=== PATIENT | male | born 1970 | race African-American/Black ===

== ENCOUNTER 2020-09-16 10:25 | Inpatient (IN) | payer MEDICAID, OTHER ==
[~2020-09-16] VITALS: Ht 185.4 cm; Wt 69.9 kg
[2020-09-16] MEDS ORDERED: ACETAMINOPHEN 325MG TABLET PO STA (10:39)
[2020-09-16] MEDS ORDERED: SODIUM CHLORIDE 0.9% 1,000 ML IV ONE (10:45)
[2020-09-16 11:01] LABS: HEMATOCRIT. 39.8 % (42.0-52.0); HEMOGLOBIN. 13.3 g/dL (14.0-18.0); MEAN CORPUSCULAR HEMOGLOBIN 29.3 pg (28.0-32.0); MEAN CORPUSCULAR VOLUME 87.4 fL (80.0-94.0); MEAN PLATELET VOLUME 10.5 fl (7.4-10.4); PLATELET 224 x1000/uL (130-400); RED BLOOD CELL COUNT 4.55 mill/uL (4.7-6.1); RED CELL DISTRIBUTION WIDTH 12.5 % (11.6-14.6)
[2020-09-16 11:07] LABS: CHLORIDE 100 mEq/L (98-107)
[2020-09-16 11:08] LABS: BG BASE EXCESS 4.1 mmol/L (-2.0-2.0); BG CARBOXYHEMOGLOBIN 0.3 % (0.5-1.5); BG DEOXYHEMOGLOBIN 4.9 % (0.0-5.0); BG METHEMOGLOBIN 0.4 % (0.0-1.5); BG OXYGEN SATURATION 95.1 % (92.0-98.5); BG OXYHEMOGLOBIN 94.4 % (94.0-97.0); BG PCO2 34.9 mmHg (35.0-45.0); BG PH 7.506 (7.350-7.450); BG PO2 72.2 mmHg (75.0-100.0); BG SAMPLE SITE RIGHT RADIAL; BG VENT MODE NASAL CANNULA
[2020-09-16 11:26] LABS: PLATELET ESTIMATE NORMAL
[2020-09-16] MEDS ORDERED: DEXAMETHASONE 4MG/ML 1ML VIAL IV ONE (11:45)
[2020-09-16] MEDS ORDERED: LIDOCAINE HCL/PF 1% 2ML VIAL ONE (12:00)
[2020-09-16] MEDS ORDERED: BENZONATATE 100MG CAPSULE PO PRN (14:15)
[2020-09-16] MEDS ORDERED: AZITHROMYCIN 500 MG TABLET PO NR (15:30)
[2020-09-16] MEDS: CEFTRIAXONE 1,000 MG in DEXTROSE 5% WATER 50 ML IV SCH (15:37)
[2020-09-16] MEDS ORDERED: ACETAMINOPHEN 325MG TABLET PO PRN ×2 (15:45)
[2020-09-16] MEDS ORDERED: GUAIFENESIN 200MG/10ML SUGAR FREE UDC PO PRN (15:45)
[2020-09-16] MEDS ORDERED: DIPHENHYDRAMINE 50MG/ML VIAL IV PRN (15:45)
[2020-09-16] MEDS ORDERED: ONDANSETRON HCL 4MG/2ML INJ IV PRN (15:45)
[2020-09-16] MEDS ORDERED: ERGOCALCIFEROL 50000UNITS CAPSULE PO SCH (15:45)
[2020-09-16 16:53] VITALS: BP 104/63
[2020-09-16 16:55] LABS: *COCAINE SCREEN URINE NEGATIVE (NEGATIVE)
[2020-09-16 16:56] LABS: *AMPHETAMINES SCREEN URINE NEGATIVE (NEGATIVE); *BARBITURATES SCREEN URINE NEGATIVE (NEGATIVE); *BENZODIAZEPINES SCREEN URINE NEGATIVE (NEGATIVE); CANNABINOID URINE SCREEN NEGATIVE (NEGATIVE); METHADONE URINE SCREEN NEGATIVE (NEGATIVE); OPIATES URINE SCREEN NEGATIVE (NEGATIVE); PHENCYCLIDINE URINE SCREEN NEGATIVE (NEGATIVE)
[2020-09-16] MEDS: ENOXAPARIN 40MG/0.4ML SYR SUBCUT SCH (18:08)
[2020-09-16 20:00] VITALS: BP 104/62
[2020-09-16] MEDS: GUAIFENESIN 600MG ER TABLET PO SCH (20:19)
[2020-09-16] MEDS: SODIUM CHLORIDE 0.9% INJ 3ML FLUSH IVF SCH ×2 (20:19→22:51)
[2020-09-16] MEDS ORDERED: ZOLPIDEM TARTRATE 5MG TABLET PO PRN (21:00)
[2020-09-16 23:47] VITALS: BP 108/72
[2020-09-17 08:00] VITALS: BP 108/69
[2020-09-17] MEDS: GUAIFENESIN 600MG ER TABLET PO SCH (08:54)
[2020-09-17] MEDS ORDERED: ASCORBIC ACID 500 MG TABLET PO SCH (09:00)
[2020-09-17] MEDS ORDERED: ZINC SULFATE 220 MG ( 50 ) CAPSULE PO SCH (09:00)
[2020-09-17] MEDS ORDERED: DEXAMETHASONE 10 MG/ML VIAL IV SCH (09:00)
[2020-09-17 12:00] VITALS: BP 109/61
[2020-09-17 14:39] LABS: CLARITY URINE CLEAR (CLEAR); COLOR URINE YELLOW (YELLOW); KETONES URINE 1+ (NEGATIVE); LEUKOCYTE ESTERASE URINE NEGATIVE (NEGATIVE); NITRITE URINE NEGATIVE (NEGATIVE); OCCULT BLOOD URINE NEGATIVE (NEGATIVE); PROTEIN URINE 1+ (NEGATIVE); SPECIFIC GRAVITY URINE 1.008 (1.005-1.030)
[2020-09-17] MEDS: SODIUM CHLORIDE 0.9% INJ 3ML FLUSH IVF SCH (14:54)
[2020-09-17] MEDS: CEFTRIAXONE 1,000 MG in DEXTROSE 5% WATER 50 ML IV SCH (15:14)
[2020-09-17] MEDS ORDERED: AZITHROMYCIN 250 MG TABLET PO SCH (15:30)
[2020-09-17] MEDS: ENOXAPARIN 40MG/0.4ML SYR SUBCUT SCH (15:44)
[2020-09-17 16:00] VITALS: BP 108/62
[2020-09-17 16:37] VITALS: BP 107/63
== END 2020-09-17 19:20 | disposition home or self-care (01) | DRG 720 ==
LOC: ER 10:25 → MICUSO 12:41 → 7WST 15:16
PROVIDERS: ADMIT Internal Medicine; ATTEND Internal Medicine
DX: A41.89 Other specified sepsis (principal); U07.1 COVID-19; J96.01 Acute respiratory failure with hypoxia; J12.82 Pneumonia due to coronavirus disease 2019; D72.810 Lymphocytopenia; E87.6 Hypokalemia; E44.1 Mild protein-calorie malnutrition; Z68.20 Body mass index [BMI] 20.0-20.9, adult
CPT/HCPCS: 36415; 36600; 71045; 80053; 80305; 81003; 82375; 82805; 83615; 83880; 84484; 85025; 85379; 93005; 93970; 99285; J0696; J1100; J1650; J3490; J7030; J7060; U0003; U0005

== ENCOUNTER 2020-09-17 23:02 | Inpatient (IN) | payer MEDICAID, OTHER ==
[~2020-09-17] VITALS: Ht 185.4 cm; Wt 69.9 kg
[2020-09-18 00:10] LABS: BASOPHILS % 0.1 % (0.0-2.0); HEMATOCRIT. 38.6 % (42.0-52.0); HEMOGLOBIN. 13.1 g/dL (14.0-18.0); LYMPHOCYTES % 7.3 % (20.0-50.0); MEAN CORPUSCULAR HEMOGLOBIN 29.5 pg (28.0-32.0); MEAN CORPUSCULAR VOLUME 86.9 fL (80.0-94.0); MONOCYTES % 8.3 % (2.0-8.0); NEUTROPHILS % 84.3 % (40.0-76.0); PLATELET 310 x1000/uL (130-400); RED BLOOD CELL COUNT 4.44 mill/uL (4.7-6.1); RED CELL DISTRIBUTION WIDTH 12.5 % (11.6-14.6)
[2020-09-18 00:13] LABS: CHLORIDE 102 mEq/L (98-107)
[2020-09-18] MEDS ORDERED: LORAZEPAM 2MG/ML CPJ IV ONE (02:00)
[2020-09-18] MEDS ORDERED: ALBUTEROL 6.7GM HFA INHALER ORI PRN (08:45)
[2020-09-18] MEDS ORDERED: ALPRAZOLAM 0.25 MG TABLET PO PRN (08:45)
[2020-09-18] MEDS ORDERED: CLONIDINE 0.1MG TABLET PO PRN (09:15)
[2020-09-18] MEDS ORDERED: ONDANSETRON HCL 4MG/2ML INJ IV PRN (09:15)
[2020-09-18] MEDS ORDERED: MAGNESIUM/ALUMINUM HYDROXIDE/SIMETHICONE 30ML UDC PO PRN (09:15)
[2020-09-18] MEDS ORDERED: HYDROCODONE/ACETAMINOPHEN 5/325MG TABLET PO PRN (09:15)
[2020-09-18] MEDS ORDERED: ACETAMINOPHEN 325MG TABLET PO PRN (09:15)
[2020-09-18] MEDS ORDERED: NALOXONE HCL 0.4MG/ML VIAL IV PRN (09:30)
[2020-09-18] MEDS ORDERED: ENOXAPARIN 40MG/0.4ML SYR SUBCUT SCH (10:00)
[2020-09-18] MEDS ORDERED: POTASSIUM CHLORIDE INJ 40 MEQ in DEXT 5% WATER 250 ML IV NR (11:00)
[2020-09-18 12:00] VITALS: BP 124/72
== END 2020-09-18 14:32 | disposition left against medical advice (07) | DRG 720 ==
LOC: ER 23:02 → MICUSO 09-18 02:06 → EDBEDREQ 09-18 02:12 → 7WST 09-18 09:29
PROVIDERS: ADMIT Internal Medicine Nephrology; ATTEND Internal Medicine Nephrology
DX: A41.89 Other specified sepsis (principal); U07.1 COVID-19; J96.01 Acute respiratory failure with hypoxia; F41.9 Anxiety disorder, unspecified; J12.82 Pneumonia due to coronavirus disease 2019; Z53.21 Procedure and treatment not carried out due to patient leaving prior to being seen by health care provider; Z60.2 Problems related to living alone; Z79.899 Other long term (current) drug therapy
CPT/HCPCS: 36415; 71045; 80053; 83880; 84484; 85025; 93005; 99291; J3480; J7060